=== PATIENT | male | born 1970 | race African-American/Black ===

== ENCOUNTER 2019-09-04 18:39 | Emergency (ER) | payer MEDICAID ==
[~2019-09-04] VITALS: Ht 157.5 cm; Wt 66.0 kg
[2019-09-04 22:25] VITALS: BP 108/65
== END 2019-09-04 22:55 | disposition home or self-care (01) ==
LOC: ER 18:39
DX: S00.83XA Contusion of other part of head, initial encounter (principal); S16.1XXA Strain of muscle, fascia and tendon at neck level, initial encounter; S20.212A Contusion of left front wall of thorax, initial encounter; M79.604 Pain in right leg; M79.601 Pain in right arm; Y08.89XA Assault by other specified means, initial encounter; Y93.9 Activity, unspecified; Y92.9 Unspecified place or not applicable; Z88.0 Allergy status to penicillin; Z88.3 Allergy status to other anti-infective agents
CPT/HCPCS: 99282

== ENCOUNTER 2019-09-09 11:28 | Emergency (ER) | payer MEDICAID ==
[~2019-09-09] VITALS: Ht 180.3 cm; Wt 68.0 kg
[2019-09-09 12:44] VITALS: BP 113/47
[2019-09-09] MEDS ORDERED: ACETAMINOPHEN 500MG TABLET PO ONE (13:30)
== END 2019-09-09 13:43 | disposition home or self-care (01) ==
LOC: ER 11:28
DX: S09.8XXA Other specified injuries of head, initial encounter (principal); Z88.0 Allergy status to penicillin; Y04.0XXA Assault by unarmed brawl or fight, initial encounter; Y93.89 Activity, other specified; Y92.89 Other specified places as the place of occurrence of the external cause
CPT/HCPCS: 70486; 99284

== ENCOUNTER 2024-03-08 01:24 | Emergency (ER) | payer MEDICAID ==
[~2024-03-08] VITALS: Ht 177.8 cm; Wt 68.0 kg
[2024-03-08 02:00] VITALS: BP 113/44; PULSE 67; RESP 20; TEMP 97.7
[2024-03-08] MEDS ORDERED: CELE-384 MT (05:43)
== END 2024-03-08 07:18 | disposition home or self-care (01) ==
LOC: ER 01:24
DX: S46.912A Strain of unspecified muscle, fascia and tendon at shoulder and upper arm level, left arm, initial encounter (principal); Z88.0 Allergy status to penicillin; X58.XXXA Exposure to other specified factors, initial encounter; Y93.89 Activity, other specified; Y92.89 Other specified places as the place of occurrence of the external cause; Y99.8 Other external cause status
CPT/HCPCS: 99283

== ENCOUNTER 2024-10-01 15:08 | Emergency (ER) | payer SELFPAY ==
[~2024-10-01] VITALS: Ht 177.8 cm; Wt 66.0 kg
[~2024-10-01 15:08] MED LIST: CEL200 MT
[2024-10-01 15:37] VITALS: BP 136/64; PULSE 60; RESP 16; TEMP 98.3; O2SAT 99
[2024-10-01] MEDS: KETOROLAC 15MG/ML VIAL IM ONE (20:30)
[2024-10-01] MEDS: CYCLOBENZAPRINE 10MG TABLET PO ONE (20:41)
== END 2024-10-01 21:11 | disposition left against medical advice (07) ==
LOC: ER 15:08
DX: M79.18 Myalgia, other site (principal); Z88.0 Allergy status to penicillin; V04.99XA Pedestrian with other conveyance injured in collision with heavy transport vehicle or bus, unspecified whether traffic or nontraffic accident, initial encounter; Y93.89 Activity, other specified; Y92.89 Other specified places as the place of occurrence of the external cause; Y99.8 Other external cause status; Z79.1 Long term (current) use of non-steroidal anti-inflammatories (NSAID)
CPT/HCPCS: 99284; 72125; J1885